=== PATIENT | female | born 1995 | race Two or more races ===

== ENCOUNTER 2017-02-02 07:25 | Outpatient (CLI) | payer OTHER | END 2017-02-02 07:26 | disposition home or self-care (01) | DX: M50.321 Other cervical disc degeneration at C4-C5 level (principal); M25.561 Pain in right knee ==

== ENCOUNTER 2017-12-06 01:01 | Emergency (ER) | payer OTHER ==
[2017-12-06] MEDS ORDERED: DEXAMETHASONE 10 MG/ML VIAL PO STA (01:14)
[2017-12-06] MEDS ORDERED: KETOROLAC 60 MG/2 ML VIAL IM STA (01:14)
--- NOTE | 2017-12-06 01:16 | ED Physician Documentation ---
PD HPI HEENT - Stated complaint Stated Complaint: SORE THROAT - Chief complaint Chief Complaint: Heent - History obtained from History obtained from: Patient - History of Present Illness Timing - onset: How many days ago (2) Timing - details: Gradual onset, Still present Location: Throat Associated symptoms: Swollen nodes. No: Fever, Congestion Similar symptoms before: Work up / diagnostics Recently seen: Not recently seen - Additional information Additional information: patient is a 22 year old female with no significant past medical history who is presenting to the emergency department for sore throat. Patient states that the pain has been going on for the last couple of days, but today when she looked in her throat she noticed spots so she came to the emergency department for evaluation. Review of Systems Constitutional: denies: Fever, Chills Eyes: denies: Discharge, Irritation Ears: reports: Ear pain Nose: denies: Congestion Throat: reports: Sore throat, Swollen tonsils Cardiac: denies: Chest pain / pressure, Palpitations Respiratory: denies: Cough, Wheezing GI: denies: Nausea, Vomiting : reports: Reviewed and negative Skin: denies: Rash, Lesions Musculoskeletal: denies: Neck pain, Back pain Neurologic: denies: Headache Immunocompromised: denies: Immunocompromised PD PAST MEDICAL HISTORY - Past Medical History Past Medical History: No - Past Surgical History Past Surgical History: No - Allergies Allergies/Adverse Reactions: Allergies Allergy/AdvReac Type Severity Reaction Status Date / Time No Known Drug Allergies Allergy Verified 12/06/17 01:07 - Social History Does the pt smoke?: No Smoking Status: Never smoker Does the pt drink ETOH?: Yes Does the pt have substance abuse?: No - Immunizations Immunizations are current?: Yes PD ED PE NORMAL - Vitals Vital signs reviewed: Yes - General General: Alert and oriented X 3, No acute distress - HEENT HEENT: Atraumatic, PERRL - Neck Neck: Supple, no meningeal sign - Cardiac Cardiac: RRR, No murmur - Respiratory Respiratory: No respiratory distress - Abdomen Abdomen: Soft, Non tender, Non distended - Derm Derm: Normal color, Warm and dry, No rash - Extremities Extremities: No deformity, Normal ROM s pain - Neuro Neuro: Alert and oriented X 3, No motor deficit, No sensory deficit, Normal speech Eye Opening: Spontaneous Motor: Obeys Commands Verbal: Oriented GCS Score: 15 - Psych Psych: Normal mood PD ED PE EXPANDED - HEENT HEENT: R TM dull, L TM dull, Swollen tonsils, Tonsillar exudate Results - Vitals Vitals: Vital Signs - 24 hr 12/06/17 01:06 Temperature 37.1 C Heart Rate 87 Respiratory 16 Rate Blood Pressure 138/86 H O2 Saturation 99 Oxygen O2 Source Room air - Labs Labs: Laboratory Tests 12/06/17 01:13 Group A Strep Rapid Negative PD MEDICAL DECISION MAKING - ED course Complexity details: reviewed old records, reviewed results, re-evaluated patient , considered differential, d/w patient, d/w family ED course: Patient was seen and examined at bedside. rapid strep was performed. Patient was treated with toradol and decadron. Patient's rapid strep was negative. patient required no further work up and was stable for discharge with outpatient follow up. Departure - Departure Disposition: 01 Home, Self Care Clinical Impression: Pharyngitis Condition: Good Instructions: ED Pharyngitis Viral Report Pending Follow-Up: RIGOBERTO ENG [Primary Care Provider] - As Needed Comments: Your strep test today was negative indicating your sore throat is likely viral in nature. You can take motrin, tylenol and throat lozenges as needed. If your cultures due sock turner to be positive you will be called. You should follow up with your doctor for further evaluation and care. You may return to the emergency department at any time for new, worsening or uncontrollable symptoms.
[2017-12-06] MEDS ORDERED: CHERRY SYRUP 10 ML UDC PO ONE (01:26)
[2017-12-06 01:39] VITALS: BP 138/82
== END 2017-12-06 01:39 | disposition home or self-care (01) ==
LOC: ED 01:01
DX: J02.9 Acute pharyngitis, unspecified (principal)
CPT/HCPCS: 87070; 87430; 96372; 99283; A9270

== ENCOUNTER 2018-02-23 02:41 | Emergency (ER) | payer OTHER ==
[2018-02-23 03:03] LABS: BILIRUBIN,URINE NEGATIVE (NEGATIVE); GLUCOSE, URINE (UA) NEGATIVE (NEGATIVE); KETONES,URINE (UA) NEGATIVE (NEGATIVE); LEUKOCYTE ESTERASE, URINE NEGATIVE (NEGATIVE); NITRITE,URINE NEGATIVE (NEGATIVE); OCCULT BLOOD,URINE NEGATIVE (NEGATIVE); PROTEIN,URINE NEGATIVE (NEGATIVE); UROBILINOGEN,URINE 0.2 (NORMAL) E.U./dL (NORMAL)
[2018-02-23 03:05] LABS: CLARITY,URINE CLEAR (CLEAR); HCG UR QUAL NEGATIVE
--- NOTE | 2018-02-23 04:58 | ED Physician Documentation ---
PD HPI FEMALE - Stated complaint Stated Complaint: ABD PX/FEMALE - Chief complaint Chief Complaint: Abd Pain - History obtained from History obtained from: Patient, Family - History of Present Illness Timing - onset: Today Timing - details: Abrupt onset, Still present Associated symptoms: Pelvic pain Similar symptoms before: Work up / diagnostics, Treatment Recently seen: Not recently seen - Additional information Additional information: Patient is a 22 year old female presenting to the emergency department for pelvic pain. patient states that the pain started this evening after having sex. Patient has had a history of ovarian cysts that have been painful but she has never had pain as serious as this. Patient states that it got worse with any palpation or movement. Review of Systems Ten Systems: 10 systems reviewed and negative Constitutional: denies: Fever, Chills GI: reports: Abdominal Pain, Nausea. denies: Vomiting, Constipation, Diarrhea : denies: Dysuria, Frequency, Hesitancy, Discharge, Vaginal bleeding PD PAST MEDICAL HISTORY - Past Medical History Past Medical History: No - Past Surgical History Past Surgical History: No - Present Medications Home Medications: Ambulatory Orders Medication Instructions Recorded Confirmed No Known Home Medications [No 02/23/18 02/23/18 Known Home Medications] - Allergies Allergies/Adverse Reactions: Allergies Allergy/AdvReac Type Severity Reaction Status Date / Time No Known Drug Allergies Allergy Verified 02/23/18 02:52 - Social History Does the pt smoke?: No Smoking Status: Never smoker Does the pt drink ETOH?: Yes Does the pt have substance abuse?: No - Immunizations Immunizations are current?: Yes - POLST Patient has POLST: No PD ED PE NORMAL - Vitals Vital signs reviewed: Yes - General General: Alert and oriented X 3, No acute distress, Well developed/nourished - HEENT HEENT: Atraumatic - Cardiac Cardiac: RRR - Respiratory Respiratory: No respiratory distress - Abdomen Abdomen: Soft - Derm Derm: Normal color, Warm and dry - Extremities Extremities: No deformity - Neuro Neuro: Alert and oriented X 3, No motor deficit, Normal speech Eye Opening: Spontaneous PD ED PE EXPANDED - Abdomen Abdomen: Tender to palpation, Suprapubic. No: Rebound, Guarding Results - Vitals Vitals: Vital Signs - 24 hr 02/23/18 02/23/18 02:48 05:14 Temperature 36.7 C 36.8 C Heart Rate 99 94 Respiratory 18 12 Rate Blood Pressure 139/90 H 125/83 H O2 Saturation 99 99 Oxygen O2 Source Room air - Labs Labs: Laboratory Tests 02/23/18 02:57 Urine Color YELLOW Urine Clarity CLEAR Urine pH 6.0 Ur Specific [place] <=1.005 Urine Protein NEGATIVE Urine Glucose (UA) NEGATIVE Urine Ketones NEGATIVE Urine Occult Blood NEGATIVE Urine Nitrite NEGATIVE Urine Bilirubin NEGATIVE Urine Urobilinogen 0.2 (NORMAL) Ur Leukocyte Esterase NEGATIVE Ur Microscopic Review NOT INDICATED Urine Culture Comments NOT INDICATED Urine HCG, Qual NEGATIVE - Rads (name of study) pelvic ultrasound Radiology: Final report received (normal) PD MEDICAL DECISION MAKING - ED course Complexity details: reviewed old records, reviewed results, re-evaluated patient , considered differential, d/w patient ED course: patient was seen and examined at bedside. Patient stated that her pain had improved and did not need pain medication at this time. urine was collected and imaging was ordered. patient's urinalysis and pelvic ultrasound were both within normal limits. A lengthy discussion was had with the patient and her family concerning the the findings and possibilities. They stated that they would call to schedule a follow up appointment today. Patient required no further inpatient work up and was stable for discharge with outpatient follow up. Departure - Departure Disposition: 01 Home, Self Care Clinical Impression: Pelvic pain Condition: Good Instructions: ED Pelvic Pain [facility] Follow-Up: primary,care provider [Other] - Within 3 Days Comments: Your diagnostics today were within normal limits. there were no abnormalities on your urinalysis or ultrasound. You can take motrin, midol or tylenol as needed for pain. You should follow up with your doctor if your symptoms persist. You may return to the emergency department at any time for new, worsening or uncontrollable symptoms.
[2018-02-23 05:15] VITALS: BP 125/83
--- NOTE | 2018-02-23 05:20 | Ultrasound Report ---
EXAM: PELVIC ULTRASOUND EXAM DATE: 02/23/2018 04:00 AM. CLINICAL HISTORY: Lower abdominal pain. COMPARISON: None. TECHNIQUE: Real-time transabdominal pelvic scan performed to identify the uterus and adnexa and as an overview of other pelvic structures, with static image documentation. FINDINGS: Uterus: 6.9 x 3.2 x 4.4 cm, volume 50.8 cc. Anteverted position. Normal overall size and echotexture. Masses: None. Endometrium: 12 mm. Normal. Cervix: Unremarkable. Right Ovary: 3.6 x 2.0 x 2.8 cm, volume 10.5 cc. Normal echotexture and blood flow. Left Ovary: 4.0 x 2.3 x 3.2 cm, volume 15.3 cc. Normal echotexture and blood flow. Free Fluid: Small. Other: None. IMPRESSION: Normal transabdominal pelvic ultrasound. [facility] Referring Provider Line: [phone] SITE ID: [id number]
--- NOTE | 2018-02-23 05:20 | Ultrasound Preliminary Report ---
Exam: US Pelvic w/Doppler Limited IMPRESSION: Normal transabdominal pelvic ultrasound. [facility] SITE ID: [id number]
== END 2018-02-23 05:36 | disposition home or self-care (01) ==
LOC: ED 02:41
DX: R10.2 Pelvic and perineal pain (principal); Z87.42 Personal history of other diseases of the female genital tract
CPT/HCPCS: 76856; 81001; 81003; 81025; 87086; 93976; 99283

== ENCOUNTER 2019-04-14 23:46 | Emergency (ER) | payer OTHER ==
--- NOTE | 2019-04-15 00:04 | ED Physician Documentation ---
PD HPI ABD PAIN - Stated complaint Stated Complaint: ABD PX/FEM - Chief complaint Chief Complaint: Abd Pain - History obtained from History obtained from: Patient - History of Present Illness Timing - onset: Yesterday Timing - duration: Days (2) Timing - details: Gradual onset Location: Suprapubic Radiation: Lower back Improved by: Other (Nothing) Associated symptoms: Dysuria, Hematuria. No: Fever, Vomiting, Dizzy, Vaginal bleeding - Additional information Additional information: This is a 23-year-old presents with her complains that she woke up 2 mornings ago with kind of a crampy pressure in her suprapubic region. It felt kind of like. Cramps but she just ended her cycle 13 days ago so she took an Azo tablet. She felt okay through the day but then woke up this morning took another Azo because the pain was more severe and she was burning with urination. She also developed some pain in her lower back it was radiating all the way up to her neck. An hour ago she started passing blood clots in the urine. She denies stating her last menstrual. Was 13 days ago. She felt feverish this morning but did not check her temperature. She is describing intense pain in the perineal region especially if she tries to sit up. No vomiting. No prior abdominal surgeries. She has not felt dizzy or passed out. She has what she considers her normal vaginal discharge. Review of Systems Constitutional: denies: Fever GI: reports: Abdominal Pain. denies: Vomiting : reports: Dysuria, Frequency, Hematuria, LMP (April 14). denies: Vaginal bleeding PD PAST MEDICAL HISTORY - Past Medical History Past Medical History: No - Past Surgical History Past Surgical History: No - Present Medications Home Medications: Ambulatory Orders Medication Instructions Recorded Confirmed Nitrofurantoin Monohyd/M-Cryst 100 mg PO BID #20 capsule 04/15/19 [Macrobid 100 mg Capsule] Phenazopyridine HCl [Pyridium] 200 mg PO TID PRN #6 tablet 04/15/19 - Allergies Allergies/Adverse Reactions: Allergies Allergy/AdvReac Type Severity Reaction Status Date / Time No Known Drug Allergies Allergy Verified 04/14/19 23:54 - Social History Does the pt smoke?: No Smoking Status: Never smoker Does the pt drink ETOH?: Yes Does the pt have substance abuse?: No - Immunizations Immunizations are current?: Yes - POLST Patient has POLST: No PD ED PE NORMAL - Vitals Vital signs reviewed: Yes - General General: Alert and oriented X 3, No acute distress, Well developed/nourished - HEENT HEENT: Moist mucous membranes, Other (No scleral icterus) - Cardiac Cardiac: RRR, No murmur - Respiratory Respiratory: No respiratory distress, Clear bilaterally - Abdomen Abdomen: Normal bowel sounds, Soft, Other (Tender in the suprapubic region) - Back Back: No CVA TTP - Derm Derm: Normal color, No rash - Neuro Neuro: Alert and oriented X 3, Other (Grossly neurologically intact.) - Psych Psych: Normal mood, Normal affect Results - Vitals Vitals: Vital Signs - 24 hr 04/14/19 04/14/19 23:51 23:54 Temperature 37.0 C 37.0 C Heart Rate 97 97 Respiratory 13 13 Rate Blood Pressure 104/77 104/77 O2 Saturation 99 99 Oxygen O2 Source Room air - Labs Labs: Laboratory Tests 04/15/19 04/15/19 00:05 00:05 Urine Color YELLOW Urine Clarity SL. CLOUDY Urine pH 7.5 Ur Specific [place] 1.020 1.020 Urine Protein >=300 H Urine Glucose (UA) 100 H Urine Ketones TRACE Urine Occult Blood LARGE H Urine Nitrite POSITIVE H Urine Bilirubin NEGATIVE Urine Urobilinogen >=8.0 H Ur Leukocyte Esterase SMALL H Urine RBC TNTC H Urine WBC >25 H Ur Squamous Epith Cells FEW Squamous Urine Bacteria Few Urine Yeast PRESENT Ur Microscopic Review INDICATED Urine Culture Comments INDICATED Urine HCG, Qual NEGATIVE PD MEDICAL DECISION MAKING - ED course ED course: The urinalysis had too numerous to count red blood cells and 25 white blood cells. Cultures been obtained. She is not . She was given ibuprofen for her pain tonight. We will place her on Macrobid, prescription for Pyridium and encouraged her to use ibuprofen for the pain. Drink lots of water. Recommend rechecking the urine with your primary care provider to make sure the infection has cleared after finishing the antibiotic. Departure - Departure Disposition: 01 Home, Self Care Clinical Impression: UTI (urinary tract infection) Qualifiers: Urinary tract infection type: acute cystitis Hematuria presence: with hematuria Qualified Code(s): N30.01 - Acute cystitis with hematuria Condition: Good Instructions: ED UTI Cystitis Female Follow-Up: RIGOBERTO ENG [Primary Care Provider] - Prescriptions: Nitrofurantoin Monohyd/M-Cryst [Macrobid 100 mg Capsule] 100 mg PO BID #20 capsule Phenazopyridine HCl [Pyridium] 200 mg PO TID PRN #6 tablet PRN Reason: dysuria Comments: Take all of the Macrobid antibiotic as prescribed twice a day for 10 days. May use the Pyridium if you are having symptoms of burning or discomfort. Ibuprofen can also be helpful to alleviate some of the discomfort. Make sure that you drink plenty of water. You may still see some bleeding until the infection begins to get under control in the next 48 hours. I would recommend rechecking the urine with your primary care provider to make sure the infection has been adequately treated after finishing the antibiotics. In addition we have sent a culture to ensure that we have the right antibiotic.
[2019-04-15 00:15] LABS: BILIRUBIN,URINE NEGATIVE (NEGATIVE); GLUCOSE, URINE (UA) 100 mg/dL (NEGATIVE); KETONES,URINE (UA) TRACE mg/dL (NEGATIVE); LEUKOCYTE ESTERASE, URINE SMALL (NEGATIVE); NITRITE,URINE POSITIVE (NEGATIVE); OCCULT BLOOD,URINE LARGE (NEGATIVE); PH,URINE 7.5 PH (5.0-7.5); PROTEIN,URINE >=300 mg/dL (NEGATIVE); UROBILINOGEN,URINE >=8.0 E.U./dL (NORMAL)
[2019-04-15 00:20] LABS: CLARITY,URINE SL. CLOUDY (CLEAR); HCG UR QUAL NEGATIVE
[2019-04-15] MEDS ORDERED: IBUPROFEN 600 MG TABLET PO STA (00:26)
[2019-04-15 00:30] LABS: BACTERIA,URINE Few /HPF (None Seen); RBC,URINE TNTC /HPF (0-5); SQUAMOUS EPITHELIAL CELL,UR FEW Squamous (<= Few)
[2019-04-15 00:31] LABS: YEAST,URINE PRESENT
[2019-04-15] MEDS ORDERED: NITROFURANTOIN MACRO 100 MG CAPSULE PO STA (01:14)
[2019-04-15] MEDS ORDERED: PHENAZOPYRIDINE 100 MG TABLET PO STA (01:25)
[2019-04-15 01:29] VITALS: BP 124/74
== END 2019-04-15 01:29 | disposition home or self-care (01) ==
LOC: ED 23:46
DX: N30.01 Acute cystitis with hematuria (principal)
CPT/HCPCS: 81001; 81025; 87086; 99283; 99284; A9270; 81003

== ENCOUNTER 2019-05-24 19:36 | Emergency (ER) | payer OTHER ==
[2019-05-24 20:05] LABS: BILIRUBIN,URINE NEGATIVE (NEGATIVE); LEUKOCYTE ESTERASE, URINE MODERATE (NEGATIVE); NITRITE,URINE POSITIVE (NEGATIVE); OCCULT BLOOD,URINE LARGE (NEGATIVE)
[2019-05-24 20:14] LABS: CLARITY,URINE CLEAR (CLEAR); HCG UR QUAL NEGATIVE
[2019-05-24 20:16] LABS: BACTERIA,URINE Many /HPF (None Seen); RBC,URINE TNTC /HPF (0-5); SQUAMOUS EPITHELIAL CELL,UR RARE Squamous (<= Few)
[2019-05-24] MEDS ORDERED: SULFAMETH/TRIMETH DS 800/160 MG TABLET PO STA (20:35)
[2019-05-24] MEDS ORDERED: HYDROcod/ACETAM 5/325 MG TABLET PO STA (20:35)
[2019-05-24] MEDS ORDERED: ONDANSETRON ODT 4 MG TABLET TL STA (20:35)
--- NOTE | 2019-05-24 20:37 | ED Physician Documentation ---
PD HPI ABD PAIN - Stated complaint Stated Complaint: BACK/AB PX/FEM - Chief complaint Chief Complaint: Abd Pain - History obtained from History obtained from: Patient - History of Present Illness Timing - onset: Other (She is had about 5 days of lower abdominal pain moving to the left and now in the left flank associated with urinary frequency. She was seen at an urgent care a few days ago and reportedly had a negative urine out fevers but she is nauseous.) Review of Systems Constitutional: denies: Fever, Chills GI: reports: Abdominal Pain, Nausea. denies: Vomiting, Constipation, Diarrhea : reports: Dysuria, Frequency PD PAST MEDICAL HISTORY - Past Medical History Past Medical History: Yes [employer]: Ovarian cysts - Past Surgical History Past Surgical History: No - Present Medications Home Medications: Ambulatory Orders Medication Instructions Recorded Confirmed Nitrofurantoin Monohyd/M-Cryst 100 mg PO BID #20 capsule 04/15/19 [Macrobid 100 mg Capsule] Phenazopyridine HCl [Pyridium] 200 mg PO TID PRN #6 tablet 04/15/19 Hydrocodone/Acetaminophen 1 - 2 each PO Q6H PRN #10 tablet 05/24/19 [Hydrocodon-Acetaminophen 5-325] Ondansetron Odt [Zofran] 4 mg TL Q6H PRN #10 tablet 05/24/19 Sulfamethoxazole/Trimethoprim 1 each PO BID #14 tablet 05/24/19 [Sulfamethoxazole-Tmp Ds Tablet] - Allergies Allergies/Adverse Reactions: Allergies Allergy/AdvReac Type Severity Reaction Status Date / Time No Known Drug Allergies Allergy Verified 05/24/19 19:43 - Social History Does the pt smoke?: No Smoking Status: Never smoker Does the pt drink ETOH?: Yes Does the pt have substance abuse?: No - Immunizations Immunizations are current?: Yes - POLST Patient has POLST: No PD ED PE NORMAL - Vitals Vital signs reviewed: Yes - General General: Alert and oriented X 3, No acute distress - Abdomen Abdomen: Normal bowel sounds, Soft, Non tender - Back Back: Other (Mild left flank tenderness) - Extremities Extremities: No edema, No calf tenderness / cord - Neuro Neuro: Alert and oriented X 3, Normal speech Results - Vitals Vitals: Vital Signs - 24 hr 05/24/19 19:39 Temperature 36.7 C Heart Rate 90 Respiratory 19 Rate Blood Pressure 136/81 H O2 Saturation 98 Oxygen O2 Source Room air - Labs Labs: Laboratory Tests 05/24/19 20:00 Urine Color ORANGE Urine Clarity CLEAR Urine pH 5.0 Ur Specific [place] 1.010 Urine Protein [place] Urine Glucose (UA) [place] Urine Ketones [place] Urine Occult Blood LARGE H Urine Nitrite POSITIVE H Urine Bilirubin NEGATIVE Urine Urobilinogen [place] Ur Leukocyte Esterase MODERATE H Urine RBC TNTC H Urine WBC >25 H Ur Squamous Epith Cells RARE Squamous Urine Bacteria Many H Ur Microscopic Review INDICATED Urine Culture Comments INDICATED Urine HCG, Qual NEGATIVE PD MEDICAL DECISION MAKING - ED course ED course: This is a young lady with urinary symptoms and flank pain with a positive urinalysis. She has some abdominal pain but there is no abdominal tenderness. She is treated for pyelonephritis Departure - Departure Disposition: Home, Self Care Clinical Impression: Pyelonephritis Condition: Good Record reviewed to determine appropriate education?: Yes Instructions: Pyelonephritis Dc Prescriptions: Hydrocodone/Acetaminophen [Hydrocodon-Acetaminophen 5-325] 1 - 2 each PO Q6H PRN #10 tablet PRN Reason: pain Ondansetron Odt [Zofran] 4 mg TL Q6H PRN #10 tablet PRN Reason: Nausea / Vomiting Sulfamethoxazole/Trimethoprim [Sulfamethoxazole-Tmp Ds Tablet] 1 each PO BID #14 tablet Comments: We will culture your urine, the results should be done in 48-72 hours. If an antibiotic change is necessary we will call you. Return if worse in the meantime, especially if you develop increasing flank pain, fevers, or cannot keep down the medication. Followup with your doctor on Tuesday as scheduled. Your blood pressure was elevated today on check into the emergency department. This does not mean that you have hypertension, it is a common phenomenon to come to the emergency department and have elevated blood pressure. I recommend that you see your primary care physician within the week to have it rechecked when you are feeling better.
[2019-05-24 20:47] VITALS: BP 120/75
== END 2019-05-24 20:50 | disposition home or self-care (01) ==
LOC: ED 19:36
DX: N12 Tubulo-interstitial nephritis, not specified as acute or chronic (principal); R03.0 Elevated blood-pressure reading, without diagnosis of hypertension
CPT/HCPCS: 81001; 81025; 87086; 99283; 99284; A9270; Q0162; 81003

== ENCOUNTER 2020-06-02 16:43 | Outpatient (CLI) | payer OTHER ==
[2020-06-02 17:30] LABS: BILIRUBIN,URINE NEGATIVE (NEGATIVE); GLUCOSE, URINE (UA) NEGATIVE (NEGATIVE); KETONES,URINE (UA) NEGATIVE (NEGATIVE); LEUKOCYTE ESTERASE, URINE NEGATIVE (NEGATIVE); NITRITE,URINE NEGATIVE (NEGATIVE); OCCULT BLOOD,URINE NEGATIVE (NEGATIVE); PH,URINE 6.5 PH (5.0-7.5); PROTEIN,URINE NEGATIVE (NEGATIVE); UROBILINOGEN,URINE 0.2 (NORMAL) E.U./dL (NORMAL)
[2020-06-02 17:31] LABS: CLARITY,URINE CLOUDY (CLEAR)
[2020-06-02 17:34] VITALS: BP 123/75
[2020-06-02 17:41] LABS: BACTERIA,URINE None Seen /HPF (None Seen); RBC,URINE None Seen /HPF (0-5); SQUAMOUS EPITHELIAL CELL,UR RARE Squamous (<= Few)
[2020-06-02 17:42] LABS: AMORPHOUS SEDIMENT,UR Marked /LPF
--- NOTE | 2020-06-02 18:06 | PROCEDURE REPORT ---
- HPI Diagnosis/Indication for NST: Other (spotting) Current EDU 09/11/20 Gestation 25 Weeks and 4 Days 1 Para 0 Vital Signs Temperature 98.1 F 06/02/20 17:32 Heart Rate 99 06/02/20 17:32 Respiratory Rate 18 06/02/20 17:32 Blood Pressure 123/75 06/02/20 17:32 O2 Saturation 99 06/02/20 17:32 Temperature 98.1 F 06/02/20 17:32 Heart Rate 99 06/02/20 17:32 Respiratory Rate 18 06/02/20 17:32 Blood Pressure 123/75 06/02/20 17:32 O2 Saturation 99 06/02/20 17:32 - Results and Plan Findings/Impression: Had a spot of red blood come out this afternoon followed by some pink-tinted discharge. Some cramping started at the same time but has now resolved. Good FM, no LOF. Care at [place], records not available. AVSS, alert smiling NAD, abd soft, nt/nd. Vulva and vagina normal, yellowish d ischarge present without clumping. No blood. SVE closed/long/high. Bedside US transabd and transvag without previa seen. Category 1 NST [place] neg UA: nhormal Wet mount: clue cells 25yo G1 at 25w with spotting likely due to cervical remodeling and BV. No evidence of labor--CL is 5, SVE is closed, no UC on toco. Treat BV with flagyl for 7d. F/u per routine. PTL precautions.
[2020-06-02 21:35] LABS: TRICHOMONAS VAGINALIS DNA NEGATIVE (NEGATIVE)
== END 2020-06-02 18:30 | disposition home or self-care (01) ==
LOC: WFO 16:43 → FBP 16:46 → WFO 18:30
PROVIDERS: ATTEND Obstetrics & Gynecology
DX: Z34.02 Encounter for supervision of normal first pregnancy, second trimester (principal); Z3A.25 25 weeks gestation of pregnancy
CPT/HCPCS: 81001; 87081; 87086; 87210; 87491; 87591; 87661; 99213

== ENCOUNTER 2020-06-13 12:13 | Outpatient (CLI) | payer OTHER ==
[2020-06-13 13:32] LABS: HGB - HEMOGLOBIN 10.9 g/dL (12.0-16.0); MEAN CORPUSCULAR HEMOGLOBIN 29.9 pg (27.0-31.0); MEAN CORPUSCULAR HGB CONC 33.4 g/dL (32.0-36.0); MEAN CORPUSCULAR VOLUME 89.6 fL (81.0-99.0); MEAN PLATELET VOLUME 9.3 fL (7.9-10.8); RED BLOOD COUNT 3.64 10^6/uL (4.20-5.40); RED CELL DISTRIBUTION WIDTH 12.3 % (12.0-15.0); WHITE BLOOD COUNT 11.5 x10^3/uL (4.8-10.8)
== END 2020-06-13 12:14 | disposition home or self-care (01) ==
LOC: LAB 12:13
PROVIDERS: ATTEND Nurse Practitioner Obstetrics & Gynecology
DX: Z36.89 Encounter for other specified antenatal screening (principal)
CPT/HCPCS: 36415; 82950; 85027

== ENCOUNTER 2020-06-17 09:06 | Outpatient (CLI) | payer OTHER | END 2020-06-17 09:07 | disposition home or self-care (01) | LOC: LAB 09:06 | PROVIDERS: ATTEND Nurse Practitioner Obstetrics & Gynecology | DX: O99.810 Abnormal glucose complicating pregnancy (principal); Z3A.00 Weeks of gestation of pregnancy not specified | CPT/HCPCS: 36415; 82951; 82952 ==

== ENCOUNTER 2020-07-30 08:00 | Outpatient (CLI) | payer OTHER ==
[2020-07-30 19:52] LABS: CANDIDA GROUP DNA NEGATIVE (NEGATIVE); CANDIDA KRUSEI DNA NEGATIVE (NEGATIVE); TRICHOMONAS VAGINALIS DNA NEGATIVE (NEGATIVE)
== END 2020-07-30 08:01 | disposition home or self-care (01) ==
LOC: LAB.R 08:00
PROVIDERS: ATTEND Nurse Practitioner Obstetrics & Gynecology
DX: N89.8 Other specified noninflammatory disorders of vagina (principal)
CPT/HCPCS: 87661; 87801

== ENCOUNTER 2020-07-30 12:02 | Outpatient (CLI) | payer OTHER ==
[2020-07-30 12:41] LABS: HGB - HEMOGLOBIN 11.4 g/dL (12.0-16.0); MEAN CORPUSCULAR HEMOGLOBIN 27.5 pg (27.0-31.0); MEAN CORPUSCULAR HGB CONC 31.3 g/dL (32.0-36.0); MEAN CORPUSCULAR VOLUME 87.9 fL (81.0-99.0); MEAN PLATELET VOLUME 10.2 fL (7.9-10.8); RED BLOOD COUNT 4.14 10^6/uL (4.20-5.40); WHITE BLOOD COUNT 10.2 x10^3/uL (4.8-10.8)
== END 2020-07-30 12:03 | disposition home or self-care (01) ==
LOC: LAB 12:02
PROVIDERS: ATTEND Nurse Practitioner Obstetrics & Gynecology
DX: O99.019 Anemia complicating pregnancy, unspecified trimester (principal); D64.9 Anemia, unspecified; Z3A.00 Weeks of gestation of pregnancy not specified; N89.8 Other specified noninflammatory disorders of vagina
CPT/HCPCS: 36415; 85027; 87661; 87801

== ENCOUNTER 2020-08-12 14:12 | Outpatient (CLI) | payer OTHER ==
--- NOTE | 2020-08-13 15:40 | Ultrasound Report ---
PROCEDURE: OB F/U or Repeat INDICATIONS: UTERINE SIZE - DATE DESCREPANCY, THIRD TRIMESTER OUTSIDE/PRIOR DATING DATA: Last menstrual period (LMP): 12/06/2019. LMP-based estimated date of delivery (KATHLEEN): 09/11/2020. First dating scan (date and location): 02/14/2020. Estimated date of delivery (KATHLEEN) from first dating scan: 09/11/2020. TECHNIQUE: Real-time scanning was performed of the fetus, with image documentation and biometric measurements. COMPARISON: None. FINDINGS: General: A single living intrauterine gestation is present. Presentation: Vertex Placenta: Placental position is posterior, without previa. Amniotic fluid index: 8.8 cm, 9th percentile for gestational age. Largest pocket 5.2 cm. heart rate: 152 beats per minute. Maternal cervical canal: 3.9 cm long; normal length is 2.5 cm or more. biometrics: Biparietal diameter: 9.5 cm 38 weeks 5 days Head circumference: 34.5 cm 39 weeks 6 days Abdominal circumference: 34.5 cm 38 weeks 3 days Femur length: 7.0 cm 36 weeks 0 days Estimated gestational age from initial scan: 35 weeks 4 days Composite gestational age from present scan: 38 weeks 2 days Estimated weight and percentile: 3384g 97th percentile Measurement variability in biometric dating: +/- 10 days from 12-20 weeks gestation, +/- 2 weeks from 20-30 weeks gestation, +/- 3 weeks at 30 weeks gestation or more. Other: BPP: Tone: 2 Movement: 2 Respiration: 0 Largest pocket 2 IMPRESSION: 1. Single live intrauterine at the 97th percentile of weight. 2. RASHAAD at the 9th percentile. Continued interval followup is recommended. 3. BPP 03/10 Reviewed by: Kiera Polanco MD on 08/13/2020 3:38 PM PST Approved by: Kiera Polanco MD on 08/13/2020 3:38 PM PST Station ID: [id number]
== END 2020-08-12 14:13 | disposition home or self-care (01) ==
LOC: DI 14:12
PROVIDERS: ATTEND Nurse Practitioner Obstetrics & Gynecology
DX: O26.843 Uterine size-date discrepancy, third trimester (principal); Z3A.38 38 weeks gestation of pregnancy
CPT/HCPCS: 76816

== ENCOUNTER 2020-08-13 18:07 | Outpatient (CLI) | payer OTHER ==
[2020-08-13 19:01] VITALS: BP 117/76
--- NOTE | 2020-08-13 21:12 | Ultrasound Report ---
PROCEDURE: OB Biophysical Profile INDICATIONS: follow up bpp for previous 03/10 bpp done OUTSIDE/PRIOR DATING DATA: Last menstrual period (LMP): 12/06/2019. LMP-based estimated date of delivery (KATHLEEN): 09/11/2020. First dating scan (date and location): 02/14/2020, [facility] Estimated date of delivery (KATHLEEN) from first dating scan: 09/11/2020. TECHNIQUE: Real-time scanning was performed of the fetus, with image documentation and biometric karin surements. Biophysical profile was also obtained. Endovaginal scanning: Not performed COMPARISON: Limited OB ultrasound dated 08/12/2020 FINDINGS: General: A single living intrauterine gestation is present. Presentation: Vertex Placenta: Placental position is posterior, without previa. Amniotic fluid index: 13.5 cm, 46.5 for gestational age. heart rate: 128 beats per minute. Maternal cervical canal: Not imaged Estimated gestational age from initial scan: 35 weeks, 5 days Biophysical profile: Tone: 2 points. Movement: 2 points. Respiration: 2 points. Largest pocket of fluid: 2 points. Umbilical artery Doppler: 2.5, 3.05, 2.85 IMPRESSION: 1. Single live intrauterine gestation with a gestational age of 35 weeks, 5 days by prior scan. 2. 05/10 biophysical profile. 3. Cord Dopplers within normal limits. Reviewed by: Jackie Worthington MD on 08/13/2020 9:10 PM PST Approved by: Jackie Worthington MD on 08/13/2020 9:10 PM PST Station ID: [id number]
--- NOTE | 2020-08-14 12:20 | PROCEDURE REPORT ---
- HPI Diagnosis/Indication for NST: Other (BPP 6/8 on previous exam) Current EDU 09/11/20 Gestation 35 Weeks and 6 Days 1 Para 0 Vital Signs Temperature 36.7 C 08/13/20 19:00 Heart Rate 77 08/13/20 19:00 Respiratory Rate 16 08/13/20 19:00 Blood Pressure 117/76 08/13/20 19:00 O2 Saturation 99 08/13/20 19:00 Temperature 36.7 C 08/13/20 19:00 Heart Rate 77 08/13/20 19:00 Respiratory Rate 16 08/13/20 19:00 Blood Pressure 117/76 08/13/20 19:00 O2 Saturation 99 08/13/20 19:00 - NST Procedure NST Procedure Start Date 08/13/20 Start Time 18:11 Stop Time 19:00 Vibroacoustic Stimulation Used No - Results and Plan Findings/Impression: HPI: 27yo @ 35.6 wks gestation presents to [facility] for scheduled NST secondary to previous BPP 68. She denies concerns or complaints today. S: Denies VB or LoF. +FM. Denies concerns or complaints. O: FHR baseline 125s, moderate variability, + accels, no decels A: FHR Category I - meets criteria for reactivity BPP 05/10 RASHAAD- 46.5% Cord Dopplers- reported as 2.5; 3.05; 2.85- wnl P: Continue routine care. F/u in office for scheduled visit or sooner PRN. Pt verbalized understanding and agrees to above plan. DIAGNOSIS: Normal NST and BPP findings
== END 2020-08-13 20:52 | disposition home or self-care (01) ==
LOC: WFO 18:07 → FBP 18:08 → WFO 20:52
PROVIDERS: ATTEND Advanced Practice Midwife
DX: O36.8930 Maternal care for other specified fetal problems, third trimester, not applicable or unspecified (principal); Z3A.35 35 weeks gestation of pregnancy
CPT/HCPCS: 59025

== ENCOUNTER 2020-08-15 08:00 | Outpatient (CLI) | payer OTHER | END 2020-08-15 23:59 | disposition home or self-care (01) | LOC: LAB.R 08:00 | PROVIDERS: ATTEND Nurse Practitioner Obstetrics & Gynecology | DX: Z36.85 Encounter for antenatal screening for Streptococcus B (principal) | CPT/HCPCS: 87797 ==

== ENCOUNTER 2020-08-26 15:59 | Outpatient (CLI) | payer OTHER ==
--- NOTE | 2020-08-26 18:46 | Ultrasound Report ---
PROCEDURE: OB F/U or Repeat INDICATIONS: EXCESSIVE GROWTH OUTSIDE/PRIOR DATING DATA: Last menstrual period (LMP): 12/06/19. LMP-based estimated date of delivery (KATHLEEN): 09/11/20. First dating scan (date and location): 02/14/20. Estimated date of delivery (KATHLEEN) from first dating scan: 09/11/20. TECHNIQUE: Real-time scanning was performed of the fetus, with image documentation and biometric measurements. COMPARISON: OB ultrasound 08/1120, 08/12/20 FINDINGS: General: A single living intrauterine gestation is present. Presentation: Vertex Placenta: Placental position is left lateral, without previa. Amniotic fluid index: 22.8 cm, 93rd percentile for gestational age. heart rate: 133 beats per minute. Maternal cervical canal: not well seen biometrics: Biparietal diameter: 9.7 cm 39 weeks 5 days Head circumference: 35.4 cm 40 weeks 3 days Abdominal circumference: 36.1 cm 40 weeks 0 days Femur length: 7.1 cm 36 weeks 2 days Estimated gestational age from initial scan: 37 weeks 5 days. Composite gestational age from present scan: 39 weeks 3 days Estimated weight and percentile: 3772 g 93rd percentile Measurement variability in biometric dating: +/- 10 days from 12-20 weeks gestation, +/- 2 weeks from 20-30 weeks gestation, +/- 3 weeks at 30 weeks gestation or more. Other: Not applicable. IMPRESSION: 1. Single live intrauterine with gestational age of 37 weeks 5 days. 2. Weight is noted at the 93rd percentile. Reviewed by: Kiera Polanco MD on 08/26/2020 5:45 PM [facility] Approved by: Kiera Polanco MD on 08/26/2020 5:45 PM [facility] Station ID: [id number]
== END 2020-08-26 16:00 | disposition home or self-care (01) ==
LOC: DI 15:59
PROVIDERS: ATTEND Nurse Practitioner Obstetrics & Gynecology
DX: O36.63X0 Maternal care for excessive fetal growth, third trimester, not applicable or unspecified (principal); Z3A.37 37 weeks gestation of pregnancy
CPT/HCPCS: 76816

== ENCOUNTER 2020-09-05 03:25 | Outpatient (CLI) | payer OTHER ==
[2020-09-05 03:49] VITALS: BP 110/75
[2020-09-05 04:29] LABS: BILIRUBIN,URINE NEGATIVE (NEGATIVE); GLUCOSE, URINE (UA) NEGATIVE (NEGATIVE); KETONES,URINE (UA) NEGATIVE (NEGATIVE); LEUKOCYTE ESTERASE, URINE NEGATIVE (NEGATIVE); NITRITE,URINE NEGATIVE (NEGATIVE); OCCULT BLOOD,URINE NEGATIVE (NEGATIVE); PROTEIN,URINE NEGATIVE (NEGATIVE); UROBILINOGEN,URINE 0.2 (NORMAL) E.U./dL (NORMAL)
[2020-09-05 04:43] LABS: CLARITY,URINE CLEAR (CLEAR)
[2020-09-05 04:44] LABS: BACTERIA,URINE Rare /HPF (None Seen); RBC,URINE 0-5 /HPF (0-5); SQUAMOUS EPITHELIAL CELL,UR FEW Squamous (<= Few)
[2020-09-05 04:59] LABS: BASOPHILS % (AUTO) 0.3 %; EOSINOPHILS # (AUTO) 0.2 10^3/uL (0.0-0.7); EOSINOPHILS % (AUTO) 1.7 %; HGB - HEMOGLOBIN 12.6 g/dL (12.0-16.0); LYMPHOCYTES # (AUTO) 2.4 10^3/uL (1.5-3.5); LYMPHOCYTES % (AUTO) 24.8 %; MEAN CORPUSCULAR HEMOGLOBIN 27.8 pg (27.0-31.0); MEAN CORPUSCULAR HGB CONC 32.3 g/dL (32.0-36.0); MEAN CORPUSCULAR VOLUME 85.9 fL (81.0-99.0); MEAN PLATELET VOLUME 10.4 fL (7.9-10.8); MONOCYTES # (AUTO) 0.7 10^3/uL (0.0-1.0); MONOCYTES % (AUTO) 7.2 %; NEUTROPHILS # (AUTO) 6.3 10^3/uL (1.5-6.6); NEUTROPHILS % (AUTO) 65.1 %; PLT - PLATELET COUNT 319 10^3/uL (130-450); RED BLOOD COUNT 4.54 10^6/uL (4.20-5.40); RED CELL DISTRIBUTION WIDTH 15.2 % (12.0-15.0); WHITE BLOOD COUNT 9.7 x10^3/uL (4.8-10.8)
--- NOTE | 2020-09-05 10:47 | PROVIDER PROGRESS NOTE ---
- HPI Chief Complaint: Labor Check Current : Current EDU 09/11/20 Gestation 39 Weeks and 1 Days 1 Para 0 Vital Signs Temperature 36.9 C 09/05/20 03:46 Heart Rate 99 09/05/20 03:46 Respiratory Rate 18 09/05/20 03:46 Blood Pressure 110/75 09/05/20 03:46 O2 Saturation 100 09/05/20 03:46 Temperature 36.9 C 09/05/20 03:46 Heart Rate 99 09/05/20 03:46 Respiratory Rate 18 09/05/20 03:46 Blood Pressure 110/75 09/05/20 03:46 O2 Saturation 100 09/05/20 03:46 - Procedures OB Procedure Performed: NST Diagnosis/Indication for NST: Decreased movement NST Procedure: NST Procedure Start Date 09/05/20 Start Time 03:40 Stop Time 04:30 Vibroacoustic Stimulation Used No Patient States Movement Yes: no FM per pt after midnight Service Date of procedure: 09/05/20 - Plan Plan: HPI: Mary presents to [facility] with c/o decreased movement for the past several hours. She denies vaginal bleeding or leakage of fluid. She reports intermittent lower abdominal tightening as well as lower back pain. She denies urinary symptoms other than urinary frequency which is not new for her. She feels she is adequately hydrated. She denies dysuria, urgency, hesitancy, and denies hematuria. O: BP normotensive, HR WNL, Afebrile. FHR baseline 140s, moderate variability, + accels, no decels Rare contractions noted via tocometry which patient does not appreciate as contractions. Mild left sided CVA tenderness on examination which is intermittent although does not seem to correlate with noted contractions via tocometry Heart RRR w/o M/G/R, lungs CTAB, abdomen gravid, soft, notender. Bilateral LE's no edema. Clean catch urine Leukocytes - neg Nitrite - neg Protein - neg Blood - neg Squamous epithelial - few Bacteria - rare Culture - NOT INDICATED CBC: WBC 9.7 Hgb 12.6 Hct 39.0 PLT 319 Patient monitored and give juice to drink. Then can feel baby move. A: 25yo @ 39.1wks gestation by 10.0wk U/S c/w LMP dating Decreased movement Back pain in - non-pathologic P: Pt released home with precautions. Has a routine appt 09/10/2020 - advised her to keep this appt. Elective IOL scheduled 09/11/2020 Pt has emergency contact information. Pt verbalized understanding and agrees to above plan. She denies further questions or concerns at this time.
== END 2020-09-05 05:35 | disposition home or self-care (01) ==
LOC: WFO 03:25 → FBP 03:26 → WFO 05:35
PROVIDERS: ATTEND Nurse Practitioner Obstetrics & Gynecology
DX: O36.8130 Decreased fetal movements, third trimester, not applicable or unspecified (principal); Z3A.39 39 weeks gestation of pregnancy; O99.891 Other specified diseases and conditions complicating pregnancy; M54.9 Dorsalgia, unspecified
CPT/HCPCS: 59025; 81001; 85025; 87086; 99212

== ENCOUNTER 2020-09-08 12:29 | Outpatient (CLI) | payer OTHER | END 2020-09-08 12:30 | disposition home or self-care (01) | LOC: WFO 12:29 | PROVIDERS: ATTEND Advanced Practice Midwife | DX: Z34.90 Encounter for supervision of normal pregnancy, unspecified, unspecified trimester (principal); Z20.828 Contact with and (suspected) exposure to other viral communicable diseases ==

== ENCOUNTER 2020-09-11 08:46 | Inpatient (IN) | payer OTHER ==
[2020-09-11] MEDS ORDERED: OXYTOCIN 10 UNIT/ML VIAL IM PRN (09:43)
[2020-09-11] MEDS ORDERED: OXYTOCIN/SODIUM CHLORIDE 500 ML IV PRN (09:43)
[2020-09-11] MEDS ORDERED: CARBOPROST TROMETHAMINE 250 MCG/ML AMP IM PRN (09:43)
[2020-09-11] MEDS ORDERED: miSOPROStoL 200 MCG TABLET BC PRN (09:43)
[2020-09-11] MEDS ORDERED: ONDANSETRON 4 MG/2 ML VIAL IVP PRN (09:43)
[2020-09-11] MEDS ORDERED: SODIUM CHLORIDE FLUSH 0.9% 10 ML SYRINGE IVP PRN (09:43)
[2020-09-11] MEDS ORDERED: METHYLERGONOVINE 0.2 MG/ML VIAL IM PRN (09:43)
[2020-09-11] MEDS ORDERED: TRANEXAMIC ACID 1,000 MG in SODIUM CHLORIDE 0.9% 100ML 100 ML IV PRN (09:43)
[2020-09-11] MEDS ORDERED: ACETAMINOPHEN 325 MG TABLET PO PRN (09:43)
[2020-09-11] MEDS ORDERED: LIDOCAINE-MPF 1% 30 ML VIAL ID PRN (09:43)
[2020-09-11] MEDS ORDERED: diphenhydrAMINE 25 MG CAPSULE PO PRN (09:46)
--- NOTE | 2020-09-11 10:00 | HISTORY & PHYSICAL EXAMINATION ---
Admit History - Visit Reason Visit Reason: Other (IOL) - : 1 Parity: 0 Premature: 0 Ectopic: 0 : 0 Care: positive: Other (W) Risk/History: positive: None Complications This : positive: None Smoking Status: Never smoker - Mother's Labs Mother's Blood Type: positive: B Mother's RH: positive: Positive GBS: positive: Group B Step Negative Rubella Status: positive: Immune - Other Maternal History Other Maternal History: -25yo at 40.0wks gestation who presents to Labor and Delivery for elective pre-induction cervical ripening -Reports movement -Denies ctx/VB/LOF - care with W which has been adequate - Complications *Size>Dates- efw 93% -Dating Criteria * Initial U/S: 02/14/2020 Initial ultrasound at 10.0wks gestation c/w LMP dating. -OB Hx *G1: current -Medications * vitamin-daily *Ferrous Sulfate- 325mg daily -Allergies *Clindamycin -Medical History *Recurrent UTIs -Surgical History *Geraldine Teeth 2016 -Family History *Mother- Diabetes -Social History *Non contributory - Labs, Immunizations, and Findings *Initial U/S: 02/14/2020 Initial ultrasound at 10.0wks gestation c/w LMP dating. *B pos/Rubella immune *VZV: immune *Genetic testing: declined *FAS: 04/24/2020 WNL. Posterior placenta, no previa.3VC. RASHAAD WNL. *08/12/2020 Growth and RASHAAD secondary to size>dates: RASHAAD reported as 9th percentile. RASHAAD 8.8 with largest pocked 5.2 which is WNL for gestational age. Growth 97th percentile - f/u in 2 weeks ordered. BPP performed w/o order - BPP 03/10. *08/13/2020 F/U for abnormal findings: BPP: /, RASHAAD- 46.5; Cord Dopplers: 2.5; 3.05; 2.85 (wnl). NST Reactive. *08/26/2020: RASHAAD 22.8 (93%tile). EFW 3772 (93%tile) *Glucola: 1hr (175); 3hr (76/143/165/120)-wnl *TDAP 06/13/2020 *Flu: declines *GBS at 36.1 weeks - negative *HSV: denies *Breast pump Rx: 07/03/2020 *MOD: Anticipate ; Partner Naldo, expecting male: Ian. "wait and see" approach to pain management. Desires IOL 09/11/2020 (@ 40w.0ks) *pp contraception: Wants closely spaced children, but will use condoms. Took 2.5 years to concieve. *pap: 05/2019-WNL -SVE 1.5/60/-2/firm/posterior -Vertex by BSUS -EFW by priscilla's: 8-8.5# -FHTs per flowsheet -COVID swab on 09/08/2020- Negative -Assessment *25yo at 40.0wks gestation who presents to Labor and Delivery for elective pre-induction cervical ripening *Anticipate LGA baby *Ham Score 4- requires cervical ripening * Heart Tones- Category I -Plan *Admit to OBS(until active labor, SROM, AROM, epidural, or pitocin) *Cervical ripening with Misoprostol *Monitoring- Continuous *Comfort measures available- position changes, whirlpool tub, fentanyl, and epidural per maternal preference *Diet/Activity- per maternal preference *Anticipate Meds/Allgy - Allergies Allergies/Adverse Reactions: Allergies Allergy/AdvReac Type Severity Reaction Status Date / Time No Known Drug Allergies Allergy Verified 06/05/20 10:42 Review of Systems - All Other Systems All Other Systems: reports: Reviewed and negative Physical - Abdominal Exam Contraction Frequency (min/apart): 4-8 Contraction Intensity: positive: Mild (patient does not feel contractions) Uterine Resting Tone: positive: Soft - Monitoring Heart Rate Baseline: 125 Strip Review: positive: Category I (moderate variability, 15x14 accels, no decels) - Presentation Presentation: positive: Vertex - Vaginal Exam Membranes: positive: Membranes intact Dilation (in cm): 1.5 Effacement (%): 60 Station: positive: -2 Cervical Position: positive: Posterior Plan for Labor - Plan For Labor I expect patient to be DC'd or transferred within 96 hours.: Yes
[2020-09-11] MEDS: miSOPROStoL 100 MCG TABLET BC SCH ×3 (10:29→19:47)
[2020-09-11 11:15] LABS: BASOPHILS # (AUTO) 0.1 10^3/uL (0.0-0.1); BASOPHILS % (AUTO) 0.5 %; EOSINOPHILS # (AUTO) 0.2 10^3/uL (0.0-0.7); EOSINOPHILS % (AUTO) 1.6 %; HGB - HEMOGLOBIN 13.7 g/dL (12.0-16.0); LYMPHOCYTES # (AUTO) 2.6 10^3/uL (1.5-3.5); LYMPHOCYTES % (AUTO) 25.6 %; MEAN CORPUSCULAR HEMOGLOBIN 27.3 pg (27.0-31.0); MEAN CORPUSCULAR HGB CONC 32.2 g/dL (32.0-36.0); MEAN CORPUSCULAR VOLUME 84.9 fL (81.0-99.0); MEAN PLATELET VOLUME 11.4 fL (7.9-10.8); MONOCYTES # (AUTO) 0.7 10^3/uL (0.0-1.0); MONOCYTES % (AUTO) 6.5 %; NEUTROPHILS # (AUTO) 6.7 10^3/uL (1.5-6.6); NEUTROPHILS % (AUTO) 65.1 %; PLT - PLATELET COUNT 358 10^3/uL (130-450); RED BLOOD COUNT 5.02 10^6/uL (4.20-5.40); RED CELL DISTRIBUTION WIDTH 15.3 % (12.0-15.0); WHITE BLOOD COUNT 10.2 x10^3/uL (4.8-10.8)
[2020-09-11] MEDS: LACTATED RINGERS 1,000 ML IV SCH (14:48)
[2020-09-12] MEDS: miSOPROStoL 100 MCG TABLET BC SCH ×3 (00:53→10:27)
[2020-09-12] MEDS: fentaNYL 100 MCG/2 ML VIAL IVP PRN ×3 (05:23→15:37)
[2020-09-12] MEDS: LACTATED RINGERS 1,000 ML IV SCH ×2 (05:23→21:27)
--- NOTE | 2020-09-12 07:32 | PROVIDER PROGRESS NOTE ---
Labor Progress Note - Uterine Monitoring Uterine Monitoring Mode: positive: External toco Contraction Frequency (min/apart): 2-6 Contraction Intensity: positive: Mild to moderate Uterine Resting Tone: positive: Soft - Monitoring Monitor Mode: positive: External ultrasound Heart Rate Baseline: 135 Heart Rate Variability: positive: Moderate (6-25 bmp) Accelerations: positive: Present, 15x15 Decelerations: positive: None Strip Review: positive: Category I - Vaginal Exam Dilation (in cm): 1.5 Effacement (%): 60 Station: -2 Cervical Position: Anterior - Labor Progress Note Labor Progress Note/Additional Text: S: Mary is found sleeping in bed, and reports that she has just had a small nap after receiving her second dose of fentanyl. FOB is asleep on the couch. Discussion of labor progress and pain management is attempted, however Mary says she is satisfied with her current state, and states she understands that it is early in labor for an epidural and understands that fentanyl will possibly be less effective now due to already receiving two doses. Encouraged RNs to do further patient education and support. O: Miso dose 5 given at 0545 SVE- 1.5/60/-2/mod/anterior/intact A: 25yo at 40.1wks gestation undergoing induction of labor modest cervical change Further cervical ripening indicated FHTs Cat I Uterine activity- not yet adequate Suspected LGA baby P: Anticipate Continuous monitoring Give final dose misoprostol and evaluate 4 hours later or sooner PRN May use comfort measures, drink, and eat to patient preference
[2020-09-12 09:38] LABS: RUPTURE OF MEMBRANES PLUS NEGATIVE (NEGATIVE)
[2020-09-12] MEDS: DOCUSATE SODIUM 100 MG CAPSULE PO SCH (12:45)
--- NOTE | 2020-09-12 13:59 | ANESTHESIA ---
Pre-Anesthesia VS, & Labs - Diagnosis labor - Procedure epidural Vital Signs: Temp Pulse Resp BP Pulse Ox 36.9 C 82 18 126/79 100 09/12/20 12:02 09/11/20 19:49 09/11/20 19:49 09/11/20 19:49 09/11/20 19:49 Height: 5 ft 1 in Weight (kg): 81.465 kg Body Mass Index: 33.9 BMI Classification: Obese - NPO >8 hours - Is Patient ?: Yes - Lab Results Current Lab Results: Laboratory Tests 09/11/20 11:50: Blood Type B POSITIVE, Antibody Screen NEGATIVE 09/11/20 08:45: WBC 10.2, RBC 5.02, Hgb 13.7, Hct 42.6, MCV 84.9, MCH 27.3, MCHC 32.2, RDW 15.3 H, Plt Count 358, MPV 11.4 H, Neut # (Auto) 6.7 H, Lymph # (Auto) 2.6, [place] # (Auto) 0.7, Eos # (Auto) 0.2, Baso # (Auto) 0.1, Absolute Nucleated RBC 0.00, Nucleated RBC % 0.0 Fish Bones: 09/11/20 08:45 Home Medications and Allergies Active Medications Acetaminophen (Acetaminophen 325 Mg Tablet) 500 mg PO Q4HR PRN PRN Reason: Pain or Fever Carboprost Tromethamine (Carboprost Tromethamine 250 Mcg/Ml Amp) 250 mcg IM Q15M PRN PRN Reason: Step 4: Hemorrhage protocol Stop: 09/16/20 09:44 Diphenhydramine HCl (Diphenhydramine 25 Mg Capsule) 25 mg PO QPM PRN PRN Reason: Insomnia Last Admin: 09/11/20 19:48 Dose: 25 mg Documented by: Docusate Sodium (Docusate Sodium 100 Mg Capsule) 100 mg PO BID LAKSHMI Last Admin: 09/12/20 12:45 Dose: 100 mg Documented by: Fentanyl (Fentanyl 100 Mcg/2 Ml Vial) 50 mcg IVP Q1H PRN PRN Reason: PAIN Last Admin: 09/12/20 06:18 Dose: 50 mcg Documented by: Oxytocin/Sodium Chloride (Pitocin/Sodium Chloride) 500 mls @ 999 mls/hr IV PRN PRN; Protocol PRN Reason: POST- HEMORR PREVENTION Stop: 09/16/20 09:44 Tranexamic Acid 1,000 mg/ (Sodium Chloride) 110 mls @ 660 mls/hr IV .ONCE PRN PRN Reason: EBL >1200mL and within 3hr Stop: 09/16/20 09:44 Lactated Ringer's (Lr) 1,000 mls @ 100 mls/hr IV .Q10H [facility] Last Admin: 09/12/20 05:23 Dose: 100 mls/hr Documented by: Lidocaine HCl (Lidocaine-Mpf 1% 30 Ml Vial) 30 ml ID .ONCE PRN PRN Reason: PERINEAL REPAIR Stop: 09/16/20 09:44 Methylergonovine Maleate (Methylergonovine 0.2 Mg/Ml Vial) 0.2 mg IM .ONCE PRN PRN Reason: Step 2: Hemorrhage protocol Stop: 09/16/20 09:44 Misoprostol (Misoprostol 200 Mcg Tablet) 800 mcg BC .ONCE PRN PRN Reason: Step 3: Hemorrhage protocol Stop: 09/16/20 09:44 Misoprostol (Misoprostol 100 Mcg Tablet) 50 mcg BC Q4HR [facility] Last Admin: 09/12/20 10:27 Dose: 50 mcg Documented by: Ondansetron HCl (Ondansetron 4 Mg/2 Ml Vial) 4 mg IVP Q4HR PRN PRN Reason: Nausea / Vomiting Oxytocin (Oxytocin 10 Unit/Ml Vial) 10 unit IM .ONCE PRN PRN Reason: Step one: If no IV access Stop: 09/16/20 09:44 Sodium Chloride (Sodium Chloride Flush 0.9% 10 Ml Syringe) 10 ml IVP 0100,0900,1700 [facility] Sodium Chloride (Sodium Chloride Flush 0.9% 10 Ml Syringe) 10 ml IVP PRN PRN PRN Reason: NEEDED PER PROVIDER ORDERS Allergies/Adverse Reactions: Allergies Allergy/AdvReac Type Severity Reaction Status Date / Time No Known Drug Allergies Allergy Verified 06/05/20 10:42 Anes History & Medical History - Anesthetic History Anesthesia Complications: reports: No previous complications - Medical History Cardiovascular: reports: None Pulmonary: reports: None Gastrointestinal: reports: None Smoking Status: Never smoker History of Cancer?: No - Obstetrical History : 1 Parity: 0 Events: positive: None Complications: positive: None Exam General: Alert Dental: WNL Mouth Opening: Greater than 4 Fingerbreadths Neck Mobility: Normal Mallampati classification: II Thyromental Distance: greater than 6 cm Respiratory: Lungs clear Cardiovascular: Regular rate Plan Anesthesia Type: Epidural Consent for Procedure(s) Verified and Reviewed: Yes Code Status: Attempt Resuscitation ASA classification: 2-Mild systemic disease Is this case an emergency?: No
--- NOTE | 2020-09-12 15:22 | PROVIDER PROGRESS NOTE ---
Labor Progress Note - Uterine Monitoring Uterine Monitoring Mode: positive: External toco Contraction Frequency (min/apart): 3-5 Contraction Intensity: positive: Mild to moderate Uterine Resting Tone: positive: Soft - Monitoring Monitor Mode: positive: External ultrasound Heart Rate Baseline: 135 Heart Rate Variability: positive: Moderate (6-25 bmp) Accelerations: positive: Present, 15x15 Decelerations: positive: None Strip Review: positive: Category I - Vaginal Exam Dilation (in cm): 4 Effacement (%): 90 Station: -2 Cervical Position: Midposition (/soft/bulging bag) - Labor Progress Note Labor Progress Note/Additional Text: S: Mary working with breathing and position changes during contractions to cope with labor. FOB supportive at her side. She reports feeling discouraged, until after this SVE. She now feels like, in light of the progress made since the last exam, she would like to be up in the chair for some time and then will consider fentanyl and NOx for pain management. Reports multiple episodes of pink and mucusy discharge, with three small clots with wiping. O: SVE 4/90/-2/soft/midposition/bulging bag bloody show noted S/P six doses misoprostol A: 25yo at 40.1wks gestation in active labor FHT Sarah [facility]- adequate labor Adequate cervical change Suspected LGA baby P: Anticipate Continuous monitoring Plan is to recheck in four hours or sooner PRN Pitocin per protocol if contractions decrease in frequency and/or patient requests; currently declines May eat/drink/change position per maternal preference Pain management options include position changes, whirlpool tub, NOx, fentanyl (up to 250 mcg in 24hr), and epidural
[2020-09-12] MEDS: SODIUM CHLORIDE FLUSH 0.9% 10 ML SYRINGE IVP SCH (15:37)
[2020-09-12] MEDS ORDERED: ROPIVACAINE 0.2% 200 MG/100 ML BAG EP ONE (18:52)
[2020-09-12] MEDS ORDERED: OXYTOCIN/SODIUM CHLORIDE 500 ML IV SCH (19:00)
[2020-09-12] MEDS ORDERED: ONDANSETRON 4 MG/2 ML VIAL IVP PRN (19:48)
[2020-09-12] MEDS ORDERED: METOCLOPRAMIDE 10 MG/2 ML VIAL IVP PRN (19:48)
[2020-09-12] MEDS ORDERED: NALBUPHINE 10 MG/ML AMP IVP PRN (19:48)
[2020-09-12] MEDS ORDERED: NALOXONE 0.4 MG/ML VIAL IVP PRN (19:48)
[2020-09-12] MEDS ORDERED: ROPIVACAINE 0.2% 200 MG/100 ML BAG EP PRN (19:48)
[2020-09-12] MEDS ORDERED: ePHEDrine 50 MG/ML VIAL IVP PRN (19:48)
[2020-09-12] MEDS ORDERED: diphenhydrAMINE INJ 50 MG/ML VIAL IVP PRN (19:48)
[2020-09-13] MEDS: LACTATED RINGERS 1,000 ML IV SCH ×3 (05:00→14:02)
[2020-09-13] MEDS ORDERED: ROPIVACAINE 0.2% 200 MG/100 ML BAG EP PRN (06:29)
--- NOTE | 2020-09-13 06:32 | CONSULTATION NOTE ---
Consultation Report: I was called as patient fully dilated and not pushing effectively due to pain. PCEA lockout interval decreased to 10 and 16cc clinical bolus given from bag solution. 10 minutes later patient comfortable and stable. WENDY Chavez at bedside.
--- NOTE | 2020-09-13 08:54 | DELIVERY NOTE ---
Delivery Note - Labor Labor: positive: Augmented by oxytocin, Other (Elective IOL with misoprostol x6) - Infant Delivery Method Delivery Method: positive: Spontaneous vaginal delivery - Cervical Ripening Method Cervical Ripening Method: positive: Misoprostil, Oxytocin - Presentation Presentation: positive: Vertex, SERGE - right occiput anterior - Nuchal Cord Nuchal Cord: positive: None - Anesthetic Anesthetic Type: - Amniotic Fluid Description Amniotic Fluid Description: positive: Clear - Laceration Laceration: positive: 2nd degree, Perineal (right) - Suture Suture Type: positive: Vicryl Suture Size: positive: 3-0 - Delivery Outcome Delivery Outcome: positive: Livebirth - [place]: positive: Placed in direct skin contact with mother, Bulb syringe, Stimulated, [place] used sex: positive: Male : 8 : 9 - Cord Cord: positive: 3 vessels - Placenta Placenta: positive: Intact, Spontaneous - Estimated Blood Loss Estimated Blood Loss (in cc): 300 - Post Delivery Events Post Delivery Events: positive: No post delivery events - Delivery Comments (Free Text/Narrative) Delivery Comments (Free Text/Narrative): Note: Labor: This 25 year old, , @40.0 wks gestation, presented on 09/11/2020 for elective induction of labor with suspected LGA baby. Cervix was 1.5/60%/-2 and vertex by BSUS. FHR pattern demonstrated 125 baseline in a Category I patte rn. Cervical ripening with six doses misoprostol and Pitocin IV. Normal labor course. Epidural placed upon maternal request. SROM occurred @ 2114 and amount and color of fluid were noted to be moderate and clear. : Normal of a 4245g male on 09/13/2020 @ 0814. Nuchal not present. Shoulder dystocia noted, lasting 80 seconds, and was resolved with Winsome and suprapubic pressure. The was placed on maternal abdomen, stimulated, dried and placed skin to skin. Apgars 8 at one minute and 9 at five minutes. The umbilical cord was allowed to stop pulsating at which time it was doubly clamped by CNM and cut by FOB. Pitocin administered via IV for hemostasis. massage and gentle cord traction applied for active third stage management. Cord blood was obtained. Placenta delivered spontaneously and intact at 0824. Three vessel cord. EBL 300mL. Fourth Stage: Uterine fundus firm and without excessive bleeding. The perineum, vagina, and cervix were inspected and found to have sustained a small second degree right perineal laceration. The repair was performed under sterile conditions with a 3-0 vicryl in standard fashion. Vaginal and rectal examination following repair was done. Tissues well approximated. initiated. Family bonding well. Both mother and baby are in stable condition.
[2020-09-13] MEDS ORDERED: HYDROCORTISONE 1% CREAM 28 GM TUBE PR PRN (08:57)
[2020-09-13] MEDS ORDERED: WITCH HAZEL/GLYCERIN 1 PAD TOP PRN (08:57)
[2020-09-13] MEDS: IBUPROFEN 600 MG TABLET PO SCH ×3 (09:22→22:18)
[2020-09-13] MEDS: DOCUSATE SODIUM 100 MG CAPSULE PO SCH ×3 (09:23→22:18)
[2020-09-13] MEDS: miSOPROStoL 100 MCG TABLET BC SCH ×7 (13:58→18:03)
[2020-09-13] MEDS: SODIUM CHLORIDE FLUSH 0.9% 10 ML SYRINGE IVP SCH ×4 (14:00→18:04)
[2020-09-13] MEDS: ACETAMINOPHEN 325 MG TABLET PO PRN (18:02)
[2020-09-14] MEDS: ACETAMINOPHEN 325 MG TABLET PO PRN ×4 (00:08→17:58)
[2020-09-14] MEDS: IBUPROFEN 600 MG TABLET PO SCH ×3 (04:28→17:58)
--- NOTE | 2020-09-14 04:39 | PROVIDER PROGRESS NOTE ---
Subjective - Prog Note Date Prog Note Date: 09/14/20 Prog Note Time: 04:35 - Subjective Pt reports feeling: Improved Subjective: S: Mary is resting in bed, with FOB at the bedside rocking baby. She reports as improving; now using a nipple shield per nursing. Baby's blood sugars have been well maintained with exclusive . She reports her bleeding as "much better" with frequent changes of her pad, but never being soaked through. Cramping with . Her perineum is still sore, but she reports the pain as well controlled with PO pain meds. Her right leg is "still numb" from the epidural, although she has normal range of motion and control. O: Lochia rubra Perineum visualized and tissues are well approximated A: 25yo s/p on 09/13/2020; day 1 Normal recovery P: Continue with routine care Evaluate for discharge home tomorrow. Objective - Vital Signs/Intake & Output Vital Signs: Vital Signs x48h Temp Pulse Resp BP Pulse Ox 09/14/20 03:30 36.8 C 88 16 112/64 100 09/14/20 00:39 36.9 C 90 18 120/74 100 Intake & Output: Intake & Output 09/11/20 09/12/20 09/13/20 09/14/20 23:59 23:59 23:59 23:59 Intake Total 3 1999 2249.750 Output Total 800 Balance 3 1999 1449.750 - Lab Results Fish Bones: 09/11/20 08:45
[2020-09-14] MEDS: DOCUSATE SODIUM 100 MG CAPSULE PO SCH (12:33)
[2020-09-15] MEDS: IBUPROFEN 600 MG TABLET PO SCH ×2 (00:51→09:57)
[2020-09-15] MEDS: ACETAMINOPHEN 325 MG TABLET PO PRN ×2 (00:52→09:56)
--- NOTE | 2020-09-15 08:51 | Discharge Plan ---
Discharge Plan Problem Reviewed?: Yes Disposition: Home, Self Care Condition: Good Diet: Regular Activity Restrictions: No Restrictions Shower Restrictions: No Driving Restrictions: No Weight Bearing: Full Weight No Smoking: If you smoke, Please STOP! Call for help. Follow-up with: Margarita Grissom CNM, ARNP [Provider Admit Priv/Credential] -
--- NOTE | 2020-09-15 08:55 | PROVIDER PROGRESS NOTE ---
Subjective - Subjective Subjective: FINAL PROGRESS NOTE: S: Bonding well with baby. Having some difficulty with secondary to nipple discomfort. Has been formula supplementing and pumping with syringe feeding expressed milk. She has no difficulty ensuring the baby is well nourished. She will work with the nurse today and states she does desire to breastfeed. Will seek support with our outpatient clinic once discharged. Bleeding decreased and is light. Pain well controlled with oral medications. She is anxious to go home tomorrow. O: BP 128/68; T 36.5; HR 83, RR 18; O2 99 Heart RRR w/o M/G/R, lungs CTAB, abdomen soft and nontender with fundus firm at U-2, perineum intact, light lochia rubra, bilateral LE's trace edema. A: 25yo -->P1 PPD#2 s/p TSVD viable male -LGA 2nd degree perineal laceration - intact P: Reviewed pp self care and warning s/sx and when to present. Advised continuation of PNV while . Advised continuation of Ibuprofen and tylenol PRN pain management. Continue Colace OTC PRN constipation. F/u in 1 week at [facility] for routine pp visit or sooner PRN. Pt verbalized understanding and agrees to above plan. She denies further questions or concerns at this time. Objective - Vital Signs/Intake & Output Vital Signs: Vital Signs x48h Temp Pulse Resp BP Pulse Ox 09/15/20 04:50 36.5 C 83 22 128/68 99 Intake & Output: Intake & Output 09/12/20 09/13/20 09/14/20 09/15/20 23:59 23:59 23:59 23:59 Intake Total 1999 2249.750 Output Total 800 Balance 1999 1449.750 - Lab Results Fish Bones: 09/11/20 08:45
--- NOTE | 2020-09-15 09:09 | DISCHARGE SUMMARY ---
Discharge Summary Admit Date: 09/11/20 Discharge Date: 09/15/20 Discharging Provider: Margarita Grissom CNM/[facility]BIGN[facility] Condition at Discharge: Good Discharge Disposition: 01 Home, Self Care - ALLERGIES Allergies/Adverse Reactions: Allergies Allergy/AdvReac Type Severity Reaction Status Date / Time No Known Drug Allergies Allergy Verified 06/05/20 10:42 - LABS Result Diagrams: 09/11/20 08:45 - FOLLOW UP Follow Up: Date of admission: 09/11/2020 Date of discharge: 09/15/2020 Diagnosis on Admission: 1. 25yo @ 2. Elective IOL with pre-induction cervical ripening 3. GBS negative Diagnosis on Discharge: 1. A 25yo s/p TSVD on 09/13/2020 2. 2nd degree perineal laceration - intact 3. 4. Normal recovery Brief History: She is a patient at [facility] who presented on 09/11/2020 for elective IOL at 40.0wks gestation. She received 6 doses of 50mcg BC misoprostol followed by pitocin for induction of labor. She progressed to spontaneously deliver a viable male on 09/13/2020 @ 0814 following 80 second shoulder dystocia which was resolved with McRobert's maneuver and s upbrapubic pressure. 2nd degree perineal laceration repaired in standard fashion, under sterile conditions. 's 8/9 at 1 and 5 min respectively. EBL 300mL. Infant noted to be large for gestational age weighing 4245g. She has been doing well in her course. She is ambulating and awa ating a regular diet. She is urinating without difficulty and her lochia is normal. Her pain is well controlled with oral medications. She will be discharged home today on PPD#1 with instructions to continue her PNV while and to continue taking ibuprofen and tylenol over the counter as needed for pain management. She intends to follow up with myself at [facility] in 1 week for routine pp visit or sooner PRN.She has been given precautions tgo call if she has any worsening fevers, chills, abdominal pain, increased bleeding, or foul smelling vaginal discharge.
[2020-09-15] MEDS: DOCUSATE SODIUM 100 MG CAPSULE PO SCH (09:58)
[2020-09-15 15:01] VITALS: BP 108/63
--- NOTE | 2020-09-15 15:09 | Labor Flowsheet ---
Labor Flowsheet Datetime Report Generated by CPN: 09/15/2020 15:09 Datetime: 09/15/2020 11:08 VITAL SIGNS NBP Sys/Anjelica/Mean (mmHg): 108 : 63 : 75 Pulse: 86 Datetime: 09/14/2020 12:35 SpO2 (%): 100 Datetime: 09/13/2020 11:06 Temperature (C): 36.9 Datetime: 09/13/2020 09:15 PAIN Pain Scale: 6 Pain Presence: Intermittent Pain Type: Cramping; Sharp Pain Location: Back; Right Hip Datetime: 09/13/2020 08:15 Stage of : Recovery Datetime: 09/13/2020 08:14 UTERINE ACTIVITY Monitor Mode: External Frequency (min): 4-5.5 Quality: Strong Duration (sec): 70-80 Pattern: Normal: <= 5 Contractions in 10 Minutes Resting Tone (Palpate): Relaxed ASSESSMENT A Monitor Mode: Telemetry FHR Baseline Rate : 175 Variability: Moderate 6-25 bpm Accelerations: 15X15 Category: Category II Comments: decels with pushing Oxygen Method: Room Air Datetime: 09/13/2020 08:00 I/O Interventions: Gerard Discontinued LaborFlag: Labor Datetime: 09/13/2020 07:15 Patient Position/Activity: Right Tilt STAGE 2 Pushing: Coached on Pushing; Urge to Push Pushing Position: Pushing with Contractions Datetime: 09/13/2020 07:11 Communication Comments: report received from Neeta Datetime: 09/13/2020 06:51 Decelerations: Variable Pushing Progress: Descent with Pushing; Presenting Part Visible Datetime: 09/13/2020 06:22 Stage 2 Comments: pushing resumed with coaching Datetime: 09/13/2020 06:10 Pain Assessment Comments: more comfortable, relaxing well Datetime: 09/13/2020 05:56 Anesthesia Comments: CRITICAL POWER INSTALL TECHNICIAN at bedside to bolus epidural Datetime: 09/13/2020 05:42 Pain Coping: Crying Patient Care Comments: emesis. 500cc bolus LR started Datetime: 09/13/2020 05:27 Pain Relief Measures: POLICE DETECTIVE Use Datetime: 09/13/2020 04:01 COMMUNICATION Communication: Provider at Bedside Datetime: 09/13/2020 03:40 Contraction Comments: recording inverted with pt on L side Datetime: 09/13/2020 03:22 Nausea/Vomiting: Present Datetime: 09/13/2020 03:14 Notification Reason: Status Update Datetime: 09/13/2020 03:01 VAGINAL EXAM Dilatation (cm): 10.0 Effacement (%): 100 Station: -1 Exam by: Abhijit Freitas, C Vaginal Bleeding: None Cervix, Consistency: Soft Cervix, Position: Anterior Datetime: 09/13/2020 02:14 Anesthesia Level Check: T10- Umbilicus Datetime: 09/13/2020 01:14 Monitor Interventions for UA: Daisy Adjusted Monitor Interventions for FHR: Ultrasound Adjusted Datetime: 09/13/2020 00:48 MEDICATIONS Pitocin (milliunits): Decreased to @ 6 Datetime: 09/12/2020 23:41 Provider Reviewed Strip: No Datetime: 09/12/2020 21:49 Membranes Ruptured Date/Time: 09/12/2020 21:15 Datetime: 09/12/2020 21:40 Membrane Status: Ruptured Membranes Rupture Method: Spontaneous Amniotic Fluid Color: Clear Amniotic Fluid Amount: Scant Amniotic Fluid Odor: Normal Nitrazine: Positive Membrane Comments: Pt reports feeling a "pop" about half an hour ago MATERNAL ASSESSMENT Level of Consciousness: Alert Headache: Generalized RUQ Epigastric Pain: Denies Hygiene: Underpad Changed Datetime: 09/12/2020 21:25 PATIENT CARE IV/Blood Work: New IV Bag Hung; IV Bag Number @ 3 Datetime: 09/12/2020 20:11 Pitocin Checklist: At Least 1 Acceleration of 15 bpm x 15 Seconds in 30 Minutes or Adequate Variabi lity; No More than 1 Late Deceleration Occurred in Past 30 Minutes; No More than 2 Variable Decelerat ions > 60 Seconds in Duration and decreasing >60 bpm in 30 minutes; No More than 5 Uterine Contractio ns in 10 Minutes for any 20 Minute Interval; Uterus Palpates Soft between Contractions Datetime: 09/12/2020 19:06 Epidural Procedure: Loading Dose Epidural Procedure Other: Pump Started Datetime: 09/12/2020 18:40 Respirations: 17 PROCEDURE TIME OUT Procedure Verify: Correct Patient Identity; Correct Side and Site are Marked; Accurate Procedure Co nsent Form; Agreement on Procedure to be Done; Correct Patient Position; Addressed Need to Administer Antibiotics or Fluids for Irrigation; Safety Precautions Based on Patient History or Medication Use ANESTHESIA Epidural Positioning: Sitting Datetime: 09/12/2020 18:14 FHR Baseline Changes: No Baseline Change Datetime: 09/12/2020 15:37 Analgesics/Sedatives: Fentanyl (mcg) @ 50 Datetime: 09/12/2020 11:50 Temperature Route: Oral Datetime: 09/12/2020 10:25 Cervical Ripening Agents: Cytotec @ Datetime: 09/12/2020 05:20 Comfort Measures: Coaching; Family Support Datetime: 09/11/2020 23:00 Vaginal Exam Comments: unchanged from previous exam Datetime: 09/11/2020 19:50 DTR's/Clonus: DTRs 2+ Breath Sounds, Left: Clear and Equal Breath Sounds, Right: Clear and Equal TEACHING Instructional Method: Patient Instructed Plan of Care: Plan of Care Discussed Labor/Induction: Cervical Ripening Pain Management: PRN Medications; Comfort Measures Medications: Cervical Ripening Datetime: 09/11/2020 17:50 Provider Notified (Name): Daisy Chavez CNM Datetime: 09/11/2020 15:41 Medication Comments: 2nd dose
== END 2020-09-15 13:10 | disposition home or self-care (01) | DRG 807 ==
LOC: WFO 08:46 → FBP 08:52 → WFO 09:43 → FBP 09:43 → UNDOADMOB 10:47 → OBSVTOIN 09-12 18:55
PROVIDERS: ADMIT Advanced Practice Midwife; ATTEND Advanced Practice Midwife
PROC: 10E0XZZ Delivery of Products of Conception, External Approach (ICD-10-PCS; principal; 2020-09-13)
PROC: 0KQM0ZZ Repair Perineum Muscle, Open Approach (ICD-10-PCS; 2020-09-13)
DX: O70.1 Second degree perineal laceration during delivery (principal); Z37.0 Single live birth; O66.0 Obstructed labor due to shoulder dystocia; Z3A.40 40 weeks gestation of pregnancy
CPT/HCPCS: 36415; 84112; 85025; 86850; 86900; 86901; 96374; 96376; A9270; G0378; J7120

== ENCOUNTER 2020-10-01 20:10 | Emergency (ER) | payer OTHER ==
[2020-10-01 20:18] VITALS: BP 124/71
[2020-10-01] MEDS ORDERED: cephALEXin 250 MG CAPSULE PO STA (20:25)
--- NOTE | 2020-10-01 20:27 | ED Physician Documentation ---
History of Present Illness - Stated complaint Stated Complaint: CHILLS, FEVER - Chief complaint Chief Complaint: Wound - History obtained from History obtained from: Patient - History of Present Illness Timing: How many days ago (2) Pain level max: 6 Pain level now: 5 - Additonal information Additional information: 25-year-old female who is approximately 2 weeks status post vaginal delivery. She states that she has been having increasing right breast pain, redness and swelling. She is breast-feeding and pumping. Better with warm showers. Today developed a fever at home. Worse with pumping and palpation. Review of Systems Constitutional: reports: Fever (101) Nose: denies: Rhinorrhea / runny nose, Congestion Throat: denies: Sore throat Cardiac: denies: Chest pain / pressure Respiratory: denies: Cough GI: denies: Abdominal Pain, Vomiting, Diarrhea Skin: denies: Rash PD PAST MEDICAL HISTORY - Past Medical History Cardiovascular: None Respiratory: None GI: None GOVERNMENT CLERK: Ovarian cysts - Past Surgical History Past Surgical History: No - Present Medications Home Medications: Ambulatory Orders Medication Instructions Recorded Confirmed Cephalexin [Keflex] 500 mg PO Q6H #40 capsule 10/01/20 - Allergies Allergies/Adverse Reactions: Allergies Allergy/AdvReac Type Severity Reaction Status Date / Time No Known Drug Allergies Allergy Verified 06/05/20 10:42 - Social History Does the pt smoke?: No Smoking Status: Never smoker Does the pt drink ETOH?: Yes Does the pt have substance abuse?: No - Immunizations Immunizations are current?: Yes - POLST Patient has POLST: No PD ED PE NORMAL - Vitals Vital signs reviewed: Yes - General General: Alert and oriented X 3, No acute distress, Well developed/nourished - HEENT HEENT: Moist mucous membranes - Neck Neck: Supple, no meningeal sign - Cardiac Cardiac: RRR - Respiratory Respiratory: No respiratory distress, Clear bilaterally - Derm Derm: Warm and dry - Neuro Neuro: Alert and oriented X 3 - Psych Psych: Normal mood, Normal affect - Free text exam Free text exam: Right breast swollen and tender, erythema around the nipple. No evidence of abscess. L breast is normal Results - Vitals Vitals: Vital Signs - 24 hr 10/01/20 20:14 Temperature 37.4 C Heart Rate 114 H Respiratory 19 Rate Blood Pressure 124/71 O2 Saturation 96 Oxygen O2 Source Room air PD MEDICAL DECISION MAKING - ED course Complexity details: considered differential, d/w patient ED course: Patient with mastitis. Will prescribe Keflex. We will have her follow-up with her doctor for further care. She is well-appearing, nontoxic. Afebrile. Patient counseled regarding signs and symptoms for which I believe and urgent re-evaluation would be necessary. Patient with good understanding of and agreement to plan and is comfortable going home at this time This document was made in part using voice recognition software. While efforts are made to proofread this document, sound alike and grammatical errors may oc cur. Departure - Departure Disposition: Home, Self Care Clinical Impression: Mastitis Condition: Good Instructions: ED Breast Infec Follow-Up: your,doctor in 1 week [Other] Prescriptions: Cephalexin [Keflex] 500 mg PO Q6H #40 capsule Comments: Take all antibiotics until gone. Continue to breast-feed and/or pump. Warm showers may help as well. Return if you worsen
== END 2020-10-01 20:33 | disposition home or self-care (01) ==
LOC: ED 20:10
DX: O91.22 Nonpurulent mastitis associated with the puerperium (principal)
CPT/HCPCS: 99282; 99284; A9270